=== PATIENT | female | born 2000 | race Caucasian/White ===

== ENCOUNTER → 2023-10-30 15:21 | Outpatient (CLI) | payer OTHER, SELFPAY ==
[2023-10-30 16:37] LABS: Add Manual Diff / Slide Review NO; Basophils Absolute Auto 0 /uL (0-100); Basophils Percent Auto 0.6 % (0-2); Eosinophils Absolute Auto 100 /uL (0-450); Eosinophils Percent Auto 1.2 % (2-4); Hematocrit 42.6 % (36-46); Hemoglobin 14.4 g/dL (12.0-16.0); Lymphocytes Absolute Auto 2600 /uL (1100-4500); Lymphocytes Percent Auto 33.7 % (25-40); Mean Corpuscular HGB Conc 33.9 % (30-36); Mean Corpuscular Hemoglobin 31.2 PG (26-34); Mean Corpuscular Volume 91.9 fL (80-100); Monocytes Absolute Auto 600 /uL (0-900); Monocytes Percent Auto 7.8 % (3-14); Neutrophils Absolute Auto 4300 /uL (1500-7000); Neutrophils Percent Auto 56.7 % (50-75); Platelet Count 286 X10^3/uL (150-400); Red Blood Cell Count 4.63 X10^6/uL (4.0-5.2); Red Cell Distribution Width 12.6 % (11.6-14.8); White Blood Cell Count 7.6 X10^3/uL (4.5-11.0)
[2023-10-30 16:54] LABS: Alanine Aminotransferase 16 IU/L (<35); Albumin Globulin Ratio 1.6 (1.0-2.8); Alkaline Phosphatase 54 U/L (38-126); Aspartate Aminotransferase 25 IU/L (14-36); BUN Creatinine Ratio 19.6 (6-22); Bilirubin Total 0.4 mg/dL (0.2-1.3); Blood Urea Nitrogen 10 mg/dL (7-17); Calcium 9.5 mg/dL (8.4-10.2); Carbon Dioxide 30 mmol/L (22-32); Chloride 104 mmol/L (98-107); Estimated Glomerular Filt Rate > 60 mL/min (>60); Globulin 3.2 g/dL (1.7-4.1); Glucose 93 mg/dL (70-100); HEMOLYSIS < 15 (0-50); Sodium 140 mmol/L (137-145); Total Protein 8.2 g/dL (6.3-8.2)
== END ==
PROVIDERS: Referring Provider Nurse Practitioner Family; Visit Provider Nurse Practitioner Family
DX: R25.2 Cramp and spasm (principal)
CPT/HCPCS: 36415; 80053; 85025

== ENCOUNTER 2023-12-29 05:32 | Emergency (ER) | payer OTHER, SELFPAY ==
[2023-12-29 05:44] VITALS: BP 120/83; PULSE 84; RESP 16; TEMP 37; O2SAT 98; BMI 23.8
--- NOTE | 2023-12-29 06:05 | ED_ITS ---
HPI - Allergic Reaction General Chief complaint: Allergic Reaction Stated complaint: allergic reaction Time Seen by Provider: 12/29/23 06:05 Source: patient and family Mode of arrival: Ambulatory History of Present Illness HPI narrative: Patient is a healthy 23-year-old female who presents today with hives and pruritus. She reports that she was diagnosed with a UTI 4 days ago started on antibiotic within started itching. She was started on Macrobid. 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 She was seen at a walk- in clinic in her primary care provider. She has prescription for Pepcid and Zyrtec. She did not receive steroids from the walk-in clinic because she had psychosis from Medrol Dosepak. Today she reports that her rash is getting worse she feels like her face is swollen. She denies any difficulty breathing. Her UTI symptoms have stopped. She has not taken anything this morning. Related Data Previous Rx's Medication Instructions Recorded prednisone 20 mg tablet 40 mg (2 x 20 mg) PO DAILY #10 tabs 12/29/23 Allergies Allergy/AdvReac Type Severity Reaction Status Date / Time Penicillins AdvReac Severe Vomiting Verified 10/30/23 15:04 Patient History Social History Smoking Status: Never smoker Smoking Status: Never smoker alcohol intake frequency: a few times a week Substance Use Type: does not use Exam Initial Vital Signs Initial Vital Signs: Vital Signs Temperature 98.6 F 12/29/23 05:44 Pulse Rate 84 12/29/23 05:44 Respiratory Rate 16 12/29/23 05:44 Blood Pressure 120/83 12/29/23 05:44 Pulse Oximetry 98 12/29/23 05:44 Oxygen Delivery Method Room Air 12/29/23 05:44 GENERAL: Well-appearing, well-nourished and in no acute distress. HEENT: Head atraumatic,EOMI, pupils reactive, face symmetric, no evidence angioedema tongue swelling or lip CARDIOVASCULAR: Regular rate and rhythm without murmurs, rubs or gallops. RESPIRATORY: Breath sounds equal bilaterally, no wheezes rales or rhonchi. No stridor ABDOMEN: Soft, nontender. Normoactive bowel sounds all 4 quadrants. No guarding or rebound. EXTREMITIES: Normal range of motion, no clubbing or edema. Neurovascularly intact NEUROLOGICAL: Alert and oriented x4.Normal gait and speech. SKIN: W urticaria noted on arms slightly on face no significant well Course Orders Ordered: Discontinued Medications Diphenhydramine HCl (Diphenhydramine 25 Mg Tablet) 50 mg PO NOW ONE Stop: 12/29/23 06:12 Last Admin: 12/29/23 06:19 Dose: 50 mg Documented By: FRANKI Prednisone (Prednisone 20 Mg Tablet) 40 mg PO NOW ONE Stop: 12/29/23 06:12 Last Admin: 12/29/23 06:19 Dose: 40 mg Documented By: FRANKI Vital Signs Vital signs: Vital Signs - 8 hr 12/29/23 05:44 Temperature 98.6 F Pulse Rate 84 Respiratory Rate 16 Blood Pressure 120/83 Pulse Oximetry 98 Oxygen Delivery Method Room Air MDM - Allergic Reaction MDM Narrative Medical decision making narrative: Patient is a healthy 23-year-old female who presents today with rash. She has had a delayed allergic reaction to Macrobid and and she ate chicken. She reports that she know she is allergic to chicken but ate it anyway. She no has no evidence of anaphylaxis. She is now willing to try some prednisone. She is given prednisone and Benadryl here in the ED along with a prescription Discharge Plan Departure Patient Disposition: Home Clinical Impression: Allergic reaction, Urticaria Instructions: DI for Hives Activity Restrictions/Additional Instructions: *You have been diagnosed with allergic reaction *What to do: At this time hopefully the prednisone and Benadryl help. It can take a couple of hours before you see results. Avoid chicken *Continue to take medications as directed Prednisone 40 mg once a day for 5 days-->[facility] Benadryl 25-50 mg every 6 hours if needed for itching May use Zyrtec and Pepcid as previously prescribed *Follow up with your primary care provider in 2-3 days or call [phone] *Return to ER if you should have increase difficulty breathing facial swelling worsening rash or any new, worsening or concerning symptoms Prescriptions: New prednisone 20 mg tablet 40 mg PO DAILY Qty: 10 0RF Referrals: Miscellaneous,Doctor, [Primary Care Provider] - Stand Alone Forms: Patient Portal/API, Work Release Note
[2023-12-29] MEDS: diphenhydrAMINE 25 MG TABLET 50 MG PO (06:19)
[2023-12-29] MEDS: predniSONE 20 MG TABLET 40 MG PO (06:19)
== END 2023-12-29 06:26 | disposition home or self-care (01) ==
PROVIDERS: Emergency Provider Emergency Medicine
DX: L50.0 Allergic urticaria (principal)
CPT/HCPCS: 99283

== ENCOUNTER 2024-01-26 08:41 | Emergency (ER) | payer OTHER, SELFPAY ==
[2024-01-26 08:53] VITALS: BP 134/98; PULSE 102; RESP 16; TEMP 36.9; O2SAT 97; BMI 23.3
--- NOTE | 2024-01-26 08:59 | EKG_ITS ---
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
--- NOTE | 2024-01-26 09:03 | ED.SKABFB ---
HPI - Skin/Abscess/Foreign Bdy General Chief complaint: Skin/Abscess/Foreign Body Stated complaint: chest pain, hives Time Seen by Provider: 01/26/24 09:03 History of Present Illness HPI narrative: Patient is a 23-year-old female who presents today with ongoing hives and pruritus. It was thought to be initially due to an antibiotic however she is also allergic to chicken she reports that she continues to have intermittent hives and chest pain. He has been taking Pepcid and Zyrtec for a month with some Benadryl but it makes her very sleepy. She is trying to get a referral to Dermatology and allergy testing however referral has not gone through yet she is very frustrated by this process. She is every time she bumped up against something she gets hives and itching in her skin breaks out. She reports it prednisone did not really help. She is avoided chicken eggs in his no longer on any antibiotic. She now for the last 2 weeks has had some chest discomfort which he reports is squeezing pain that last for 30 seconds off and on for almost an hour and then resolves. She denies any significant shortness of breath she has not traveled anywhere. Not currently having chest pain but overall frustrated Related Data Previous Rx's Medication Instructions Recorded prednisone 20 mg tablet 40 mg (2 x 20 mg) PO DAILY #10 tabs 12/29/23 Allergies Allergy/AdvReac Type Severity Reaction Status Date / Time Penicillins AdvReac Severe Vomiting Verified 10/30/23 15:04 Patient History Social History Smoking Status: Never smoker Smoking Status: Never smoker alcohol intake frequency: a few times a week Substance Use Type: does not use Exam Initial Vital Signs Initial Vital Signs: Vital Signs Temperature 98.5 F 01/26/24 08:53 Pulse Rate 102 H 01/26/24 08:53 Respiratory Rate 16 01/26/24 08:53 Blood Pressure 134/98 H 01/26/24 08:53 Pulse Oximetry 97 01/26/24 08:53 Oxygen Delivery Method Room Air 01/26/24 08:53 GENERAL: Alert pleasant 23-year-old female and in no acute distress. HEENT: Head atraumatic,EOMI, pupils reactive, face symmetric, moist mucous membranes CARDIOVASCULAR: Regular rate and rhythm without murmurs, rubs or gallops. RESPIRATORY: Breath sounds equal bilaterally, no wheezes rales or rhonchi. EXTREMITIES: Normal range of motion, no clubbing or edema. Neurovascularly intact NEUROLOGICAL: Alert and oriented x4.Normal gait and speech. SKIN: Warm, dry, no laceration, no petechiae, no rashes or lesions. No actual urticaria or hives at this time. Course Orders Ordered: ED Orders 01/26/24 09:01 EKG-12 Lead Stat Vital Signs Vital signs: Vital Signs - 8 hr 01/26/24 08:53 01/26/24 09:42 Temperature 98.5 F Pulse Rate 102 H 82 Respiratory Rate 16 Blood Pressure 134/98 H 119/80 Pulse Oximetry 97 98 Oxygen Delivery Method Room Air Room Air MDM - Skin/Abscess/Foreign Bdy ECG Data Attestation: I personally reviewed and interpreted this ECG as follows: Interpretation: Normal sinus rhythm rate 83 RI interval 122 QRS [address] changes no Q-waves no T-wave inversions MDM Narrative Medical decision making narrative: Patient 28-year-old female continues to have intermittent hives and urticaria along with some chest pain and squeezing. EKG shows a normal sinus rhythm. Low suspicion for acute coronary syndrome or pulmonary embolism I suspect acid reflux or esophageal spasm. 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 Continue to avoid chicken products May try an elimination diet as well *Continue to take medications as directed May try other trut-dth-lgdotrh antihistamine such as Aleta or Claritin May add omeprazole 20 mg once a day *Follow up with your primary care provider in 2-3 days or call [phone] *Return to ER if you should have increasing worsening rash difficulty breathing tongue swelling lip swelling chest pain or any new, worsening or concerning symptoms Prescriptions: No Action prednisone 20 mg tablet 40 mg PO DAILY Qty: 10 0RF Referrals: Miscellaneous,Doctor, [Primary Care Provider] - Stand Alone Forms: Patient Portal/API
[2024-01-26 09:42] VITALS: BP 119/80; PULSE 82; O2SAT 98
== END 2024-01-26 09:42 | disposition home or self-care (01) ==
PROVIDERS: Emergency Provider Emergency Medicine
DX: L50.9 Urticaria, unspecified (principal); T78.40XA Allergy, unspecified, initial encounter; R07.89 Other chest pain
CPT/HCPCS: 93005; 99281; 99283